=== PATIENT | female | born 1995 | race Caucasian/White ===

== ENCOUNTER 2016-08-03 13:09 | Emergency (ER) | payer MEDICAID ==
[~2016-08-03] VITALS: Ht 167.6 cm; Wt 75.0 kg
[2016-08-03 13:16] VITALS: BP 128/67; PULSE 86; RESP 16; TEMP 97.3; O2SAT 98
[2016-08-03] MEDS ORDERED: MORPHINE SULFATE 4 MG/ML INJ IV ONE (13:30)
[2016-08-03] MEDS ORDERED: ONDANSETRON HCL 4 MG/2 ML VIAL IVP ONE (13:30)
--- NOTE | 2016-08-03 13:34 | PD ---
HPI Chief Complaint: Injury Time Seen by Provider: 13:31 Travel History International Travel<30 days: No Contact w/Intl Traveler<30days: No Traveled to known affect area: No History of Present Illness HPI 21-year-old female presents to the emergency department via EMS. Patient states that around 7 AM this morning, she slipped on her boat oncology. She states that she fell hitting her right shoulder and head. She is unsure if she lost consciousness. She reports history of traumatic injury the plastic surgery to the right shoulder. Patient states that she is unable to move the right shoulder due to pain. She denies any neck pain or back pain. No chest pain or abdominal pain. No nausea or vomiting. She denies . She has been ambulatory since the fall. She reports no chronic medical problems and takes no prescribed medications. [facility] Past Medical History Medical History: Denies Significant Hx ?: Unknown Past Surgical History Surgical History: No Previous Surgery Social History Alcohol Use: Yes Tobacco Use: Yes (5 CIGS A DAY) Substance Use: No Allergies-Medications (Allergen,Severity, Reaction): Coded Allergies: No Known Allergies (Unverified , 08/03/16) Reported Meds & Prescriptions Reported Meds & Active Scripts Active No Active Prescriptions or Reported Medications Review of Systems Except as stated in HPI: all other systems reviewed are Neg Physical Exam Narrative GENERAL: Well-nourished, well-developed female patient, afebrile. SKIN: Focused skin assessment warm/dry. She has scar noted to the right upper shoulder. HEAD: Normocephalic. No lacerations or abrasions EYES: No scleral icterus. No injection or drainage. NECK: Supple, trachea midline. No JVD or lymphadenopathy. CARDIOVASCULAR: Regular rate and rhythm without murmurs, gallops, or rubs. Bilateral radial pulses 2+. Capillary refill less than 2 seconds to the digits of the right hand. RESPIRATORY: Breath sounds equal bilaterally. No accessory muscle use. Lungs sounds are clear to auscultation. GASTROINTESTINAL: Abdomen soft, non-tender, nondistended. MUSCULOSKELETAL: No cyanosis, or edema. Patient has tenderness over right shoulder with reduced range of motion. She has full sensation in the distal right upper extremity. BACK: Nontender without obvious deformity. No CVA tenderness. No midline spinal tenderness. She has full range of motion of cervical spine without pain or stiffness. Data Data Last Documented VS Vital Signs Date Time Temp Pulse Resp B/P Pulse Ox O2 Delivery O2 Flow Rate FiO2 08/03/16 13:28 86 16 Room Air 08/03/16 13:16 97.3 128/67 98 Orders Morphine Inj (Morphine Inj) (08/03/16 13:30) Ondansetron Inj (Zofran Inj) (08/03/16 13:30) Ct Brain W/O Iv Contrast(Rout) (08/03/16 ) Shoulder, Complete (>2vws) (08/03/16 ) Ondansetron Odt (Zofran Odt) (08/03/16 13:45) Morphine Inj (Morphine Inj) (08/03/16 13:45) MDM Medical Decision Making Medical Screen Exam Complete: Yes Emergency Medical Condition: Yes Medical Record Reviewed: Yes Interpretation(s) Last Impressions Shoulder X-Ray 08/03/16 0000 Signed Impressions: Service Date/Time: , August 03, 2016 13:48 - CONCLUSION: Unremarkable study. Davonte Galindo MD CT brain - CONCLUSION: No acute disease. Differential Diagnosis Closed head injury versus intracranial abnormality versus shoulder fracture versus shoulder sprain versus dislocation Narrative Course 21-year-old female presents to the emergency department for evaluation after a slip and fall that occurred at 7 AM this morning. She reports hitting her head and right shoulder pain. CT of the brain and x-ray of the right shoulder ordered and pending. CT of the brain shows no acute disease. X-ray of the right shoulder is unremarkable. Patient will be discharged with a prescription for diclofenac and Robaxin. She is encouraged to follow-up with a primary care physician. She is return for any acute worsening of symptoms. The patient was discharged in stable condition with instructions, including return instructions and follow up instructions. Diagnosis Primary Impression: Closed head injury Qualified Code: S09.90XA - Closed head injury, initial encounter Additional Impression: Shoulder contusion Qualified Code: S40.011A - Contusion of right shoulder, initial encounter Referrals: Primary Care Physician call for appointment Patient Instructions: Contusion in Adults (ED), General Instructions, Head Injury (ED) Departure Forms: Tests/Procedures, Work Release Enter return to work date: Aug 06, 2016 Additional Instructions: Take diclofenac as directed as needed with food for pain. Take Robaxin as directed as needed. Ice for 20 minutes 4-5 times daily. Follow-up with your primary care physician. Return to the emergency department for any acute worsening of symptoms. Med/Other Pt SpecificInfo: Prescription(s) given Scripts Methocarbamol (Robaxin)750 Mg Com263 Mg PO TID PRN (MUSCLE SPASM) #21 TAB Ref 0 Prov:Helen Villegas 08/03/16 Diclofenac Potassium 50 Mg Tab50 Mg PO TID PRN (PAIN SCALE 1 TO 10) #21 TAB Ref 0 Prov:Helen Villegas 08/03/16 Disposition: 01 DISCHARGE HOME Condition: Stable Helen Villegas Aug 03, 2016 13:34
[2016-08-03] MEDS ORDERED: ONDANSETRON ODT 4 MG TAB PO ONE (13:45)
[2016-08-03] MEDS ORDERED: MORPHINE SULFATE 8 MG/ML INJ IM ONE (13:45)
--- NOTE | 2016-08-03 14:08 | RADRPT ---
EXAM DATE/TIME: 08/03/2016 13:48 [facility] COMPARISON: No previous studies available for comparison. INDICATIONS : Right shoulder pain after falling today. MEDICAL HISTORY : None. SURGICAL HISTORY : None. ENCOUNTER: Initial ACUITY: 1 day PAIN SCORE: 10/10 LOCATION: Right shoulder joint. FINDINGS: No definite fractures, or dislocations are identified. No definite lytic or sclerotic lesion is seen . The joint space is well maintained. CONCLUSION: Unremarkable study. Davonte Galindo MD on August 03, 2016 at 14:05 Board Certified Radiologist. This report was verified electronically.
--- NOTE | 2016-08-03 14:20 | RADRPT ---
EXAM DATE/TIME: 08/03/2016 13:42 [facility] COMPARISON: No previous studies available for comparison. INDICATIONS : Fall early this morning,head pain with blurred vision,hit right side. RADIATION DOSE: 56.77 CTDIvol (mGy) MEDICAL HISTORY : None SURGICAL HISTORY : None. ENCOUNTER: Initial ACUITY: 1 day PAIN SCALE: 3/10 LOCATION: cranial TECHNIQUE: Multiple contiguous axial images were obtained of the head. Using automated exposure control and adj ustment of the mA and/or kV according to patient size, radiation dose was kept as low as reasonably a chievable to obtain optimal diagnostic quality images. FINDINGS: CEREBRUM: The ventricles are normal for age. No evidence of midline shift, mass lesion, hemorrhage or acute in farction. No extra-axial fluid collections are seen. POSTERIOR FOSSA: The cerebellum and brainstem are intact. The 4th ventricle is midline. The cerebellopontine angle i s unremarkable. EXTRACRANIAL: The visualized portion of the orbits is intact. SKULL: The calvaria is intact. No evidence of skull fracture. CONCLUSION: No acute disease. John Curtis MD on August 03, 2016 at 14:17 Board Certified Radiologist. This report was verified electronically.
[2016-08-03] MEDS ORDERED: DICL50TA PO (14:29)
[2016-08-03] MEDS ORDERED: ROBA750T PO (14:29)
== END 2016-08-03 15:07 | disposition home or self-care (01) ==
LOC: NEDAMB 13:09
DX: S09.90XA Unspecified injury of head, initial encounter (principal); S40.011A Contusion of right shoulder, initial encounter; R51 Headache; W01.198A Fall on same level from slipping, tripping and stumbling with subsequent striking against other object, initial encounter; Y93.9 Activity, unspecified; Y92.89 Other specified places as the place of occurrence of the external cause; Y99.9 Unspecified external cause status; Z72.0 Tobacco use
CPT/HCPCS: 70450; 73030